=== PATIENT | female | born 1980 | race Caucasian/White ===

== ENCOUNTER 2018-04-22 06:28 | Emergency (ER) | payer BC ==
[~2018-04-22] VITALS: Ht 149.9 cm; Wt 67.1 kg
[~2018-04-22 06:28] MED LIST: ADVIL COLD & S1 EAC1 PO; FLONASE 0.05%50 MCG NASAL; METFORMIN HCL500 MG PO; PERCOCET 5-3251 EACH PO; PHENERGAN 25 MG25 M1 PO; PROAIR HFA8.5 GM INH; REGLAN10 MG PO; ZYRTEC
[2018-04-22] MEDS ORDERED: ADVIL200 M3 PO (06:47)
[2018-04-22 07:14] LABS: URINE BILIRUBIN NEGATIVE (Negative); URINE BLOOD 3+ (Negative); URINE CLARITY SL CLOUDY; URINE COLOR YELLOW; URINE GLUCOSE-RANDOM* NEGATIVE (Negative); URINE KETONES NEGATIVE (Negative); URINE LEUKOCYTES-REFLEX NEGATIVE (Negative); URINE NITRITE-REFLEX NEGATIVE (Negative); URINE PROTEIN (DIPSTICK) NEGATIVE (Negative); URINE UROBILINOGEN 0.2 E.U./dl (0.2-1.0)
[2018-04-22 07:18] LABS: ABSOLUTE NEUTROPHILS 4.1 thou/uL (1.4-8.2); BASOPHILS 1.2 % (0.0-2.0); EOSINOPHILS 2.8 % (0.0-3.0); HEMOGLOBIN 13.7 gm/dL (12.0-15.0); LYMPHOCYTES 23.9 % (24.0-44.0); MCH 28.8 pg (26.0-34.0); MCHC 34.3 g/dL (28.0-37.0); MCV 83.9 fL (80.0-100.0); MONOCYTES 9.7 % (1.0-8.0); PLATELET COUNT 201 thou/uL (150-400); POLYS 62.4 % (36.0-66.0); RBC 4.76 mil/uL (4.20-5.00); RDW 13.2 % (10.5-14.5); WBC 6.6 thou/uL (4.0-11.0)
[2018-04-22 07:23] LABS: CREATININE 0.9 mg/dL (0.6-1.0); POTASSIUM 3.5 mmol/L (3.5-5.1)
[2018-04-22 07:24] LABS: SQUAMOUS 4-10 Moderate /LPF (0-3); URINE RBC >20 Many /HPF (0-2)
[2018-04-22 07:25] LABS: BACTERIA-REFLEX None Seen /HPF (None Seen); CASTS None Seen /LPF (None Seen); CRYSTALS None Seen /LPF (None Seen); URINE WBC-REFLEX 0-5 Rare /HPF (0-5)
[2018-04-22] MEDS ORDERED: FLOMAX0.4 MG PO (08:49)
[2018-04-22] MEDS ORDERED: NORCO 5-325 TA1 EACH PO (08:49)
[2018-04-22] MEDS ORDERED: ZOFRAN ODT4 MG PO (08:49)
[2018-04-22 09:49] VITALS: BP 129/85
== END 2018-04-22 09:54 | disposition home or self-care (01) ==
LOC: ER 06:28
PROVIDERS: Emergency Medicine
DX: N20.1 Calculus of ureter (principal); R31.9 Hematuria, unspecified; Z90.49 Acquired absence of other specified parts of digestive tract; Z87.442 Personal history of urinary calculi

== ENCOUNTER 2018-04-27 14:55 | Emergency (ER) | payer BC ==
[~2018-04-27] VITALS: Ht 149.9 cm; Wt 67.1 kg
[~2018-04-27 14:55] MED LIST changes: +ADVIL200 M3 PO; +FLOMAX0.4 MG PO; +NORCO 5-325 TA1 EACH PO; +ZOFRAN ODT4 MG PO
[2018-04-27 15:35] LABS: ICTOTEST (BILI CONFIRMATORY) Negative (Negative); URINE BILIRUBIN NEGATIVE (Negative); URINE BLOOD 3+ (Negative); URINE CLARITY HAZY; URINE COLOR YELLOW; URINE GLUCOSE-RANDOM* NEGATIVE (Negative); URINE KETONES TRACE (Negative); URINE PROTEIN (DIPSTICK) TRACE (Negative); URINE SPECIFIC GRAVITY 1.025 (1.005-1.035)
[2018-04-27 15:36] LABS: URINE LEUKOCYTES-REFLEX 1+ (Negative); URINE NITRITE-REFLEX NEGATIVE (Negative); URINE UROBILINOGEN 0.2 E.U./dl (0.2-1.0)
[2018-04-27 15:44] LABS: BACTERIA-REFLEX None Seen /HPF (None Seen); CASTS None Seen /LPF (None Seen); CRYSTALS None Seen /LPF (None Seen); MUCUS >6 Heavy strn/LPF (None Seen); SQUAMOUS 4-10 Moderate /LPF (0-3); WBC CLUMPS Moderate (None Seen)
[2018-04-27 16:09] LABS: ABSOLUTE NEUTROPHILS 4.4 thou/uL (1.4-8.2); BASOPHILS 0.6 % (0.0-2.0); EOSINOPHILS 2.5 % (0.0-3.0); HEMATOCRIT 39.5 % (37.0-47.0); HEMOGLOBIN 13.4 gm/dL (12.0-15.0); LYMPHOCYTES 23.8 % (24.0-44.0); MCHC 33.9 g/dL (28.0-37.0); MCV 85.7 fL (80.0-100.0); MONOCYTES 10.6 % (1.0-8.0); PLATELET COUNT 167 thou/uL (150-400); POLYS 62.5 % (36.0-66.0); RBC 4.61 mil/uL (4.20-5.00)
[2018-04-27 16:15] LABS: CALCIUM 9.1 mg/dL (8.5-10.1); CREATININE 1.2 mg/dL (0.6-1.0)
[2018-04-27 19:20] VITALS: BP 121/71
== END 2018-04-27 19:24 | disposition short-term general hospital (02) ==
LOC: ER 14:55
PROVIDERS: Physician Assistant; Student in an Organized Health Care Education/Training Program
DX: N20.0 Calculus of kidney (principal); N39.0 Urinary tract infection, site not specified; Z87.442 Personal history of urinary calculi; Z90.49 Acquired absence of other specified parts of digestive tract